=== PATIENT | female | born 1965 | race Caucasian/White ===

== ENCOUNTER 2017-02-11 06:59 | Day surgery (SDC) | payer BC ==
[~2017-02-11] VITALS: Ht 165.1 cm; Wt 63.6 kg
[2017-02-11 08:11] VITALS: BP 105/67; Ht 165.1 cm; Wt 63.6 kg
[2017-02-11 08:24] LABS: HEMATOCRIT 42.2 % (36.0-48.0); HEMOGLOBIN 14.1 g/dL (12-16); MCH 31.9 pg (26.0-34.0); MCHC 33.4 g/dL (31.0-37.0); MCV 95.5 fL (80.0-100.0); MEAN PLATELET VOLUME 10.3 fL (7.4-10.4); RBC 4.42 10x6/uL (4.00-5.40); RDW 13.1 % (11.5-14.5); WBC 6.2 10x3/uL (4.8-10.8)
--- NOTE | 2017-02-11 10:15 | NUR ---
PT REC'D TO ROOM VIA STRETCHER. AWAKE, ALERT, TALKING. VSS.
--- NOTE | 2017-02-11 10:30 | NUR ---
FULL LIQ DIET PROVIDED.
[2017-02-11] MEDS ORDERED: ZESTORETIC 10/11 TAB PO (10:33)
[2017-02-11] MEDS ORDERED: LEXAPRO10 MG (10:34)
[2017-02-11] MEDS ORDERED: PROTONIX20 MG PO (10:34)
--- NOTE | 2017-02-11 11:05 | NUR ---
IV D/C'D CATH INTACT. D/C INSTRUCTIONS EXPLAINED TO PT. VOICED UNDERSTANDING. COPIES OF ALL GIVEN TO PT. D/C'D HOME VIA W/C TO PRIVATE CAR.
--- NOTE | 2017-02-20 13:26 | HP ---
PATIENT: DANIAL EPSTEIN MEDICAL RECORD: [id number] ACCOUNT: [id number] LOCATION:DDARRYL : 63 ADMISSION DATE: 02/11/17 HISTORY AND PHYSICAL EXAMINATION CHIEF COMPLAINT: Difficulty swallowing. HISTORY OF PRESENT ILLNESS: The patient has significant gastroesophageal reflux. She may be contemplating an operation sometime in the future. She also has dysphagia at the level of the cricopharyngeus. We will plan for an upper endoscopy with esophageal dilation. HOME MEDICATIONS: None. ALLERGIES: ASPIRIN. REVIEW OF SYSTEMS: Positive for Crohn disease. PHYSICAL EXAMINATION: GENERAL: The patient does not appear acutely ill. She does not appear chronically ill. VITAL SIGNS: Reviewed. EARS: External ears appear normal. EYES: Extraocular movements are intact. NECK: Trachea is midline. CHEST: No intercostal retractions. PULMONARY: Nonlabored, no stridor. IMPRESSION: 1. Gastroesophageal reflux. 2. Dysphagia. PLAN: EGD with esophageal dilation. TRANSINT:[id number] Voice Confirmation ID: [id number] DOCUMENT ID: [id number] NAWAF SERNA MD at 1326 CC: [id number] DICTATION DATE: 02/11/17 0935 INTERNAL COMBUSTION ENGINE ASSEMBLER: 02/11/17 1010 [facility] 02/11/17 [id number] [place] [address]
--- NOTE | 2017-02-20 13:26 | OP ---
PATIENT NAME: DANIAL EPSTEIN MEDICAL RECORD: [id number] :63 LOCATION:D.OPS ADMISSION DATE: SURGEON: NAWAF SERNA MD DATE OF OPERATION: 02/11/2017 PREOPERATIVE DIAGNOSES: 1. Intractable gastroesophageal reflux disease. 2. Dysphagia at level of the cricopharyngeus. POSTOPERATIVE DIAGNOSES: 1. Intractable gastroesophageal reflux disease. 2. Dysphagia at level of the cricopharyngeus. 3. Paraesophageal hernia. PROCEDURES: Esophagogastroduodenoscopy with antral and distal esophageal biopsies. Esophageal dilation through the catheter balloon to 54-Occitan. SURGEON: Nawaf Serna MD NETWORK FIREWALL ENGINEER: None. BLOOD LOSS: Minimal. ANESTHESIA: IV sedation. COMPLICATIONS: None. The risks, possible complications, and alternatives to the procedure were explained to the patient. A consent form was signed. ENDOSCOPIC COURSE: The patient was conveyed to endoscopy suite electively on 02/11/2017. A bite block was inserted. A gastroscope was inserted into the mouth. It was advanced easily into the hypopharynx. The esophagus was easily intubated as were the stomach and duodenum. Upon withdrawal, retroflexed and angulus views were obtained. Antral biopsies were obtained. I then advanced it through the catheter balloon. I sequentially dilated the entire length of the esophagus to 54-Occitan through the catheter balloon. I removed the balloon. I then re-endoscoped the patient's esophagus and stomach. There had been no evidence of false passage or perforation. Distal esophageal biopsies were obtained to rule out Ocasio's esophagus. The endoscope was then withdrawn under direct vision. I will see the patient in my office in 2 to 3 weeks. At that time, we will discuss the possibility of her undergoing a laparoscopic hiatal hernia repair with a Dulce fundoplication. TRANSINT:[id number] Voice Confirmation ID: [id number] DOCUMENT ID: [id number] OPERATIVE REPORT [id number] TETEDANIAL PANIAGUA NAWAF SHI MD at 1326 CC: TERRI TRACEY MD [id number] DICTATION DATE: 02/11/17 1007 ELECTRIC SYSTEM OPERATOR: 02/11/17 1121 [facility] 02/11/17 [place] [address]
== END 2017-02-11 11:05 | disposition home or self-care (01) ==
LOC: D.OPS 06:59
PROVIDERS: Anesthesiology
DX: R13.10 Dysphagia, unspecified (principal); K44.9 Diaphragmatic hernia without obstruction or gangrene; K21.9 Gastro-esophageal reflux disease without esophagitis; Z87.891 Personal history of nicotine dependence; Z01.812 Encounter for preprocedural laboratory examination

== ENCOUNTER 2017-03-11 08:17 | Outpatient (CLI) | payer BC ==
[2017-02-11 08:11] VITALS: BMI 23.3
[~2017-03-11 08:17] MED LIST: LEXAPRO10 MG; PROTONIX20 MG PO; ZESTORETIC 10/11 TAB PO
== END 2017-03-11 09:20 ==
LOC: D.OPS 08:17
DX: K21.9 Gastro-esophageal reflux disease without esophagitis (principal); K92.0 Hematemesis

== ENCOUNTER 2017-03-17 05:22 | Day surgery (SDC) | payer BC ==
[~2017-03-17] VITALS: Ht 165.1 cm; Wt 63.6 kg
--- NOTE | ~2017-03-17 | DS ---
PATIENT:DANIAL EPSTEIN :63 MEDICAL RECORD: [id number] DISCHARGE SUMMARY ADMISSION DATE: 03/17/17 DISCHARGE DATE: 03/18/17 PRINCIPAL DIAGNOSES: 1. Hiatal hernia. 2. Intractable gastroesophageal reflux. 3. Volume reflux. PROCEDURE: 1. Laparoscopic hiatal hernia repair. 2. Laparoscopic Dulce fundoplication. HOSPITAL COURSE: The patient underwent the above operative procedure. Postoperatively, her pain was controlled with the patient controlled analgesia pump. She is being dismissed home. She is to continue her Carafate as well as a proton pump inhibitor. She has been giving her dietary restrictions. She is going to be on hydrocodone for analgesia as well as Zofran for any nausea. I will see her in the office in 2-3 weeks. TRANSINT:[id number] Voice Confirmation ID: [id number] DOCUMENT ID: [id number] NAWAF SERNA MD at 1131 CC: [id number] DICTATION DATE: 03/18/17 1510 CITRIX ARCHITECT: 03/19/17 1122 [facility] 03/18/17 [address] [place] [address]
--- NOTE | ~2017-03-17 | OP ---
PATIENT NAME: DANIAL EPSTEIN MEDICAL RECORD: [id number] :63 LOCATION:D.OPS ADMISSION DATE: SURGEON: NAWAF SERNA MD DATE OF OPERATION: 03/17/2017 PREOPERATIVE DIAGNOSES: 1. Intractable gastroesophageal reflux. 2. Volume reflux. 3. Paraesophageal hernia. POSTOPERATIVE DIAGNOSES: 1. Intractable gastroesophageal reflux. 2. Volume reflux. 3. No paraesophageal hernia; however, a moderately to large sized hiatal hernia. PROCEDURE: 1. Laparoscopic hiatal hernia repair (posterior crural repair). 2. Laparoscopic Dulce fundoplication. SURGEON: Nawaf Serna MD. PRODUCT SAFETY LEAD: Bran Wen MD (JJ). BLOOD LOSS: Less than 25 cc. DRAINS: None. COMPLICATIONS: None. The risks, possible complications, and alternatives to the procedure were explained to the patient. She elects to proceed. OPERATIVE COURSE: The patient was conveyed to the operating room electively on 03/17/2017. General anesthesia was induced by the anesthesia staff. The abdomen was sterilely prepped and draped. A small skin incision was accomplished in the left upper quadrant. A Veress needle was inserted into the peritoneal cavity. CO2 insufflation was begun. Once a sufficient pneumoperitoneum had been achieved, additional trocars were placed. There were some adhesions in the right side of the abdomen from a prior operation and these adhesions, which consisted only of omental adhesions, were taken down with the Harmonic scalpel. A 5 mm trocar was inserted far laterally in the right upper quadrant. A 12-mm trocar was inserted in the right upper quadrant. An 11-mm trocar was inserted within the umbilicus. Three 5-mm trocars were inserted in the left side of the abdomen. During insertion of the Veress needle and all trocars, there appeared to have been no injury to the bowels, any intraperitoneal or retroperitoneal structures. I began my dissection utilizing the Harmonic scalpel along the greater curve of the stomach, taking down the short gastrics. I identified the left chepe. It was bluntly dissected away from the cardia of the stomach as well as the left side of the esophagus. I took down the phrenicoesophageal ligament with the Harmonic scalpel. Some fatty tissue at the EG junction was excised with the OPERATIVE REPORT [id number] DANIAL EPSTEIN Harmonic scalpel. A mediastinal dissection was carried out utilizing the Harmonic scalpel as well as lot of blunt dissections. Once I was satisfied that we had a return of significant amount of esophagus into the intra-abdominal compartment, I then proceeded with the posterior crural closure. The closure was performed utilizing a 2-0 Stratafix suture. I then created a retroesophageal and retrogastric window. I took down the gastrohepatic ligament with the Harmonic scalpel. I then brought the fundus of the stomach around posterior to the esophagus. The fundoplication was then carried out with a running 2-0 Stratafix suture. This was a 3-suture fundoplication. The first one of the suture was incorporating a portion of the anterior wall of the esophagus. There was no bleeding even at low pressure of 8. The Wilfredo retractor was removed. The fascia at the 12 mm trocar and 11 mm trocar sites were closed with interrupted 0 Vicryls. The skin at the umbilicus was closed with interrupted 4-0 Vicryl Rapide sutures. The other skin incisions were closed with interrupted intracuticular 3-0 Vicryls. The patient was then conveyed to post-anesthesia care unit where she was in stable condition. She will be placed in an observation bed. Our plan is to obtain an upper GI tomorrow to ensure that there is not a leak present. TRANSINT:[id number] Voice Confirmation ID: [id number] DOCUMENT ID: [id number] NAWAF SERNA MD at 1131 CC: MARICEL BANKS [id number] DICTATION DATE: 03/17/17 1053 ADVISOR ADVOCATE ANGEL CO FOUNDER: 03/17/[address] [facility] 03/18/17 [address] [id number] [place] [id number]
--- NOTE | ~2017-03-17 | OP ---
PATIENT NAME: DANIAL EPSTEIN MEDICAL RECORD: [id number] :63 LOCATION:D.MS Cook2240 ADMISSION DATE: SURGEON: KIRA CARTWRIGHT MD DATE OF OPERATION: 03/17/2017 SURGEON: Tony Hart MD HEADLINE WRITER: Kira Cartwright MD OPERATIVE COURSE: I was the veterinary assistant on today's pace. retail administrative assistant was required due to complexity of hiatal hernia. I assisted with trocar placement, placement of the Wilfredo liver retractor, dissection of the hiatal hernia, excision of the hiatal hernia sac as well as closure of the diaphragmatic hiatus as well as closure and creation of the Dulce fundoplication. I was present and assisted during all moreno portions of the operation at the request of Dr. Hart. At the end of the case, all needle and instrument counts were correct. For full details of the operative report, please see Dr. Hart's operative note. TRANSINT:[id number] Voice Confirmation ID: [id number] DOCUMENT ID: [id number] KIRA CARTWRIGHT MD at 1139 CC: [id number] DICTATION DATE: 03/17/17 0956 RF MANAGER: 03/17/17 1110 [id number] [place] [address]
[2017-03-17 06:47] VITALS: BP 113/67; BMI 23.3
[2017-03-17 07:01] LABS: HEMATOCRIT 40.2 % (36.0-48.0); HEMOGLOBIN 13.2 g/dL (12-16); MCH 31.4 pg (26.0-34.0); MCHC 32.8 g/dL (31.0-37.0); MCV 95.5 fL (80.0-100.0); MEAN PLATELET VOLUME 10.1 fL (7.4-10.4); RBC 4.21 10x6/uL (4.00-5.40); RDW 12.3 % (11.5-14.5); WBC 7.5 10x3/uL (4.8-10.8)
[2017-03-17 11:17] VITALS: BP 89/50
[2017-03-17 11:28] VITALS: BP 95/60; Ht 165.1 cm; Wt 63.6 kg
[2017-03-17 20:00] VITALS: BP 90/56
[2017-03-18 09:29] VITALS: BP 82/48
[2017-03-18 14:18] VITALS: BP 99/66
== END 2017-03-18 17:47 | disposition home or self-care (01) ==
LOC: D.OPS 05:22 → D.MS 10:55 → D.OPS 03-18 17:47
PROVIDERS: Anesthesiology
DX: K21.9 Gastro-esophageal reflux disease without esophagitis (principal); K44.9 Diaphragmatic hernia without obstruction or gangrene; Z01.812 Encounter for preprocedural laboratory examination

== ENCOUNTER 2017-03-25 07:03 | Inpatient (IN) | payer BC ==
[2017-03-25] VITALS (7 sets, daily range): BP systolic 92–120; BP diastolic 56–74; BMI 23.2
[~2017-03-25] VITALS: Ht 162.6 cm; Wt 55.2 kg
--- NOTE | ~2017-03-25 | OP ---
PATIENT NAME: DANIAL EPSTEIN MEDICAL RECORD: [id number] :63 LOCATION:MELVIN CookCV08 ADMISSION DATE:03/25/17 SURGEON: KIRA CARTWRIGHT MD DATE OF OPERATION: 03/25/2017 SURGEON: Kira Cartwright MD SHOE REPAIRMAN SURGEON: Tony Hart MD PREOPERATIVE DIAGNOSES: 1. Sepsis. 2. Perforated viscus. 3. Peritonitis. 4. History of Dulce fundoplication. 5. Acute bilateral pulmonary emboli. PROCEDURES PERFORMED: 1. Diagnostic laparoscopy. 2. Abdominal washout. 3. Primary repair of perforated stomach. 4. Abe patch. Other procedures performed by Dr. Hart include EGD and insertion of an IVC filter with fluoroscopy. Please see separate operative note for details of the procedure. ANESTHESIA: General. COMPLICATIONS: None. SPECIMENS: None. Case was grossly contaminated. ESTIMATED BLOOD LOSS: 40 cc. OPERATIVE COURSE: After consent was obtained, the patient was taken to the operating room and placed in the supine position on the operating table. Next, general anesthesia was given via endotracheal intubation after a timeout was performed to confirm the correct patient and procedure. EGD and IVC filter were performed by Dr. Hart. Please see operative note for details of the procedure. After the IVC filter and EGD were performed, the abdomen was prepped and draped in typical sterile fashion. The left upper quadrant incision near Hanley's point was opened with an 11-blade scalpel. Using a 5-mm bladeless optical trocar, the abdomen was entered under direct laparoscopic vision. Adequate pneumoperitoneum was achieved. Next all remaining trocars were placed, a second 5-mm trocar in the left lateral quadrant, 5-mm trocar at the umbilicus, 12-mm trocar in the right lateral quadrant as well as a 5-mm trocar in the right lateral quadrant. Wilfredo liver retractor was placed at the subxiphoid position. The left lobe of the liver was elevated exposing the area of previous operation as well as the diaphragm and diaphragmatic hiatus. The abdomen was copiously irrigated and suctioned, approximately 600 cc of succuss and ascites were suctioned from the abdomen. The Dulce fundoplication appeared intact as OPERATIVE REPORT [id number] DANIAL EPSTEIN the cardia was teased off the diaphragm. A 2 cm perforation was noted at the anterior surface of the stomach along the cardia and greater curvature. The stomach was fully mobilized, the wound edges were freshened and cleaned. This perforation was closed primarily using a 3-0 Stratafix suture. The suture line was then imbricated with a second layer of serosal stitches using Stratafix suture. A second 3-0 Vicryl suture was then placed lateral to the other ischemic side the stomach. At this time, Evicel was placed over the repair. A Abe patch was then performed. The greater omentum was mobilized, it was placed along the anterior surface of the stomach between the liver and stomach. It was sutured in place using 3-0 Vicryl sutures. At this time, the abdomen was copiously irrigated and suctioned. Two MIGUE drains were placed; one MIGUE drain was placed between the liver and the stomach along the lesser curvature of stomach and a second drain was placed in the left upper quadrant posterior to the spleen and then in the left pericolic gutter. Again, the abdomen was copiously irrigated and suctioned. There was no evidence of bleeding, no evidence of bowel injury. At this time, all remaining instruments were removed. The abdomen was desufflated. Trocars were removed. Skin was closed with 3-0 Vicryl, Mastisol and Steri-Strips. At the end of the case, all needle and instrument counts were correct. No complications occurred. The patient was extubated and transferred to the PACU in stable condition. TRANSINT:[id number] Voice Confirmation ID: [id number] DOCUMENT ID: [id number] KIRA CARTWRIGHT MD at 0900 CC: [id number] DICTATION DATE: 03/25/172237 POT BUILDER: 03/26/17 0820 ADM IN [facility] [address] [place] [address]
[2017-03-25 07:34] LABS: BASOPHILS 0.2 % (0-2); EOSINOPHILS 0.2 % (0-7); HEMATOCRIT 40.5 % (36.0-48.0); HEMOGLOBIN 13.7 g/dL (12-16); LYMPHOCYTES 8.4 % (15-50); MCH 31.9 pg (26.0-34.0); MCHC 33.8 g/dL (31.0-37.0); MCV 94.4 fL (80.0-100.0); MEAN PLATELET VOLUME 10.2 fL (7.4-10.4); MONOCYTES 7.8 % (2-11); NEUTROPHILS 82.4 % (40-80); RBC 4.29 10x6/uL (4.00-5.40); RDW 12.7 % (11.5-14.5); WBC 5.8 10x3/uL (4.8-10.8)
[2017-03-25 07:42] LABS: PLATELET COUNT 424 10x3/uL (130-400)
[2017-03-25 07:44] LABS: ALBUMIN 2.7 g/dL (3.4-5.0); ALKALINE PHOSPHATASE 70 U/L (46-116); ALT (SGPT) 19 U/L (10-68); BILIRUBIN - TOTAL 0.67 mg/dL (0.2-1.3); CALC OSMOLALITY 274 mosm/kg (275-300); CALCIUM 8.6 mg/dL (8.5-10.1); CARBON DIOXIDE 21.6 mmol/L (21.0-32.0); CHLORIDE - SERUM 95 mmol/L (98-107); CREATININE - SERUM 0.6 mg/dL (0.6-1.3); GLUCOSE 113 mg/dL (74-106); PROTEIN - SERUM 6.9 g/dL (6.4-8.2); SODIUM 136 mmol/L (136-145); UREA NITROGEN 17 mg/dL (7-18); eGFR NON AFRICAN AMERICAN > 90 mL/min (90-120)
[2017-03-25 07:49] LABS: POTASSIUM - SERUM 2.5 mmol/L (3.5-5.1)
[2017-03-25 07:51] LABS: MAGNESIUM - SERUM 1.8 mg/dL (1.8-2.4)
[2017-03-25 08:36] LABS: AMYLASE - SERUM 16 U/L (25-115); LIPASE 65 U/L (73-393)
[2017-03-25 13:25] LABS: INR 1.29 (0.85-1.17); PROTIME 15.6 SECONDS (11.6-15.0)
[2017-03-25 13:26] LABS: APTT 33.3 SECONDS (22.8-39.4)
[2017-03-26] VITALS (38 sets, daily range): BP systolic 86–115; BP diastolic 53–79; Ht 162.6 cm; Wt 55.2 kg
[2017-03-26 05:58] LABS: BASOPHILS 0.1 % (0-2); EOSINOPHILS 0.1 % (0-7); HEMATOCRIT 32.7 % (36.0-48.0); IMMATURE GRANULOCYTES 0.8 % (0-5); LYMPHOCYTES 6.2 % (15-50); MCHC 33.3 g/dL (31.0-37.0); MCV 92.9 fL (80.0-100.0); MEAN PLATELET VOLUME 10.3 fL (7.4-10.4); MONOCYTES 3.4 % (2-11); NEUTROPHILS 89.4 % (40-80); PLATELET COUNT 364 10x3/uL (130-400); RBC 3.52 10x6/uL (4.00-5.40); RDW 12.9 % (11.5-14.5)
[2017-03-26 06:20] LABS: INR 1.46 (0.85-1.17); PROTIME 17.2 SECONDS (11.6-15.0)
[2017-03-26 06:22] LABS: APTT 33.5 SECONDS (22.8-39.4)
[2017-03-26 06:23] LABS: CALCIUM 7.5 mg/dL (8.5-10.1); CHLORIDE - SERUM 102 mmol/L (98-107); CREATININE - SERUM 0.7 mg/dL (0.6-1.3); GLUCOSE 145 mg/dL (74-106); MAGNESIUM - SERUM 1.6 mg/dL (1.8-2.4); SODIUM 139 mmol/L (136-145); eGFR NON AFRICAN AMERICAN > 90 mL/min (90-120)
[2017-03-26 06:24] LABS: HEMOGLOBIN 10.9 g/dL (12-16); WBC 10.1 10x3/uL (4.8-10.8)
[2017-03-26 06:26] LABS: CALC OSMOLALITY 280 mosm/kg (275-300); CARBON DIOXIDE 28.8 mmol/L (21.0-32.0); UREA NITROGEN 12 mg/dL (7-18)
[2017-03-26 06:27] LABS: POTASSIUM - SERUM 2.7 mmol/L (3.5-5.1)
[2017-03-26 06:38] LABS: HELICOBACTER PYLORI IGG NEGATIVE (NEGATIVE)
[2017-03-26 17:13] LABS: HEPATITIS C ANTIBODY <0.1 (0.0-0.9)
[2017-03-26 19:16] LABS: HEMATOCRIT 30.1 % (36.0-48.0); HEMOGLOBIN 10.1 g/dL (12-16)
[2017-03-27] VITALS (26 sets, daily range): BP systolic 86–194; BP diastolic 47–88
[2017-03-27 06:46] LABS: BASOPHILS 0.1 % (0-2); EOSINOPHILS 0.2 % (0-7); HEMATOCRIT 29.4 % (36.0-48.0); HEMOGLOBIN 9.6 g/dL (12-16); IMMATURE GRANULOCYTES 1.1 % (0-5); LYMPHOCYTES 10.1 % (15-50); MCH 31.2 pg (26.0-34.0); MCHC 32.7 g/dL (31.0-37.0); MCV 95.5 fL (80.0-100.0); MEAN PLATELET VOLUME 9.8 fL (7.4-10.4); MONOCYTES 7.9 % (2-11); NEUTROPHILS 80.6 % (40-80); PLATELET COUNT 291 10x3/uL (130-400); RBC 3.08 10x6/uL (4.00-5.40); RDW 13.5 % (11.5-14.5); WBC 9.7 10x3/uL (4.8-10.8)
[2017-03-27 07:02] LABS: CALCIUM 7.1 mg/dL (8.5-10.1); CARBON DIOXIDE 32.5 mmol/L (21.0-32.0); CHLORIDE - SERUM 107 mmol/L (98-107); GLUCOSE 116 mg/dL (74-106); MAGNESIUM - SERUM 1.7 mg/dL (1.8-2.4); SODIUM 144 mmol/L (136-145)
[2017-03-27 07:11] LABS: CALC OSMOLALITY 285 mosm/kg (275-300); CREATININE - SERUM 0.5 mg/dL (0.6-1.3); POTASSIUM - SERUM 3.2 mmol/L (3.5-5.1); UREA NITROGEN 7 mg/dL (7-18); eGFR NON AFRICAN AMERICAN > 90 mL/min (90-120)
[2017-03-27 11:21] LABS: ACLA - IGG AB <9 GPL U/mL (0-14); ACLA - IGM AB 12 MPL U/mL (0-12)
[2017-03-27 13:41] LABS: HEMATOCRIT 30.7 % (36.0-48.0)
[2017-03-27 20:30] LABS: HEMATOCRIT 30.5 % (36.0-48.0); HEMOGLOBIN 9.9 g/dL (12-16)
[2017-03-28] VITALS (24 sets, daily range): BP systolic 85–142; BP diastolic 61–88
[2017-03-28 03:28] LABS: BASOPHILS 0.1 % (0-2); EOSINOPHILS 0.5 % (0-7); HEMATOCRIT 30.7 % (36.0-48.0); HEMOGLOBIN 9.9 g/dL (12-16); IMMATURE GRANULOCYTES 1.8 % (0-5); LYMPHOCYTES 11.7 % (15-50); MCH 31.1 pg (26.0-34.0); MCHC 32.2 g/dL (31.0-37.0); MCV 96.5 fL (80.0-100.0); MEAN PLATELET VOLUME 9.6 fL (7.4-10.4); MONOCYTES 10.6 % (2-11); NEUTROPHILS 75.3 % (40-80); PLATELET COUNT 285 10x3/uL (130-400); RBC 3.18 10x6/uL (4.00-5.40); RDW 13.4 % (11.5-14.5); WBC 9.4 10x3/uL (4.8-10.8)
[2017-03-28 03:44] LABS: ALBUMIN 1.6 g/dL (3.4-5.0); ALKALINE PHOSPHATASE 56 U/L (46-116); ALT (SGPT) 17 U/L (10-68); CALC OSMOLALITY 279 mosm/kg (275-300); CALCIUM 7.3 mg/dL (8.5-10.1); CARBON DIOXIDE 34.3 mmol/L (21.0-32.0); CHLORIDE - SERUM 105 mmol/L (98-107); CREATININE - SERUM 0.4 mg/dL (0.6-1.3); GLUCOSE 114 mg/dL (74-106); MAGNESIUM - SERUM 2.3 mg/dL (1.8-2.4); PHOSPHOROUS 2.6 mg/dL (2.5-4.9); POTASSIUM - SERUM 3.4 mmol/L (3.5-5.1); SODIUM 141 mmol/L (136-145); UREA NITROGEN 8 mg/dL (7-18); eGFR NON AFRICAN AMERICAN > 90 mL/min (90-120)
[2017-03-28 09:19] LABS: PROTEIN S - FREE 43 % (57-157); PROTEIN S - TOTAL 66 % (60-150)
[2017-03-28 13:17] LABS: PROTEIN S - FREE 44 % (57-157); PROTEIN S - FUNCTIONAL 24 % (63-140); PROTEIN S - TOTAL 66 % (60-150)
[2017-03-28 15:24] LABS: LUPUS - INTERPRETATION Comment: (()); LUPUS - THROMBIN TIME 16.2 sec (0.0-23.0); LUPUS - dRVVT 46.4 sec (0.0-47.0); PTT-LA 43.8 sec (0.0-51.9)
[2017-03-29] VITALS (22 sets, daily range): BP systolic 112–150; BP diastolic 72–90
[2017-03-29 05:43] LABS: BASOPHILS 0.3 % (0-2); EOSINOPHILS 0.5 % (0-7); HEMATOCRIT 30.4 % (36.0-48.0); IMMATURE GRANULOCYTES 1.6 % (0-5); LYMPHOCYTES 13.9 % (15-50); MCH 31.4 pg (26.0-34.0); MCHC 32.9 g/dL (31.0-37.0); MCV 95.6 fL (80.0-100.0); MEAN PLATELET VOLUME 9.8 fL (7.4-10.4); MONOCYTES 13.5 % (2-11); NEUTROPHILS 70.2 % (40-80); PLATELET COUNT 280 10x3/uL (130-400); RBC 3.18 10x6/uL (4.00-5.40); RDW 13.3 % (11.5-14.5); WBC 9.3 10x3/uL (4.8-10.8)
[2017-03-29 05:52] LABS: CALC OSMOLALITY 270 mosm/kg (275-300); CALCIUM 7.8 mg/dL (8.5-10.1); CARBON DIOXIDE 33.8 mmol/L (21.0-32.0); CHLORIDE - SERUM 98 mmol/L (98-107); CREATININE - SERUM 0.4 mg/dL (0.6-1.3); GLUCOSE 100 mg/dL (74-106); MAGNESIUM - SERUM 2.1 mg/dL (1.8-2.4); POTASSIUM - SERUM 3.5 mmol/L (3.5-5.1); SODIUM 136 mmol/L (136-145); UREA NITROGEN 10 mg/dL (7-18); eGFR NON AFRICAN AMERICAN > 90 mL/min (90-120)
[2017-03-29 19:10] LABS: PROTEIN C - ANTIGEN 68 % (60-150); PROTEIN C - FUNCTIONAL 80 % (73-180)
[2017-03-30] VITALS (14 sets, daily range): BP systolic 109–157; BP diastolic 68–91
[2017-03-30 03:06] LABS: GASTRIN 25 pg/mL (0-115)
[2017-03-30 06:10] LABS: BASOPHILS 0.2 % (0-2); EOSINOPHILS 0.6 % (0-7); HEMATOCRIT 29.4 % (36.0-48.0); HEMOGLOBIN 9.7 g/dL (12-16); IMMATURE GRANULOCYTES 2.6 % (0-5); LYMPHOCYTES 15.3 % (15-50); MCH 30.7 pg (26.0-34.0); MEAN PLATELET VOLUME 9.7 fL (7.4-10.4); MONOCYTES 15.3 % (2-11); PLATELET COUNT 235 10x3/uL (130-400); RBC 3.16 10x6/uL (4.00-5.40); RDW 12.8 % (11.5-14.5); WBC 8.8 10x3/uL (4.8-10.8)
[2017-03-30 06:31] LABS: CALC OSMOLALITY 272 mosm/kg (275-300); CALCIUM 8.2 mg/dL (8.5-10.1); CARBON DIOXIDE 30.8 mmol/L (21.0-32.0); CHLORIDE - SERUM 99 mmol/L (98-107); CREATININE - SERUM 0.4 mg/dL (0.6-1.3); GLUCOSE 108 mg/dL (74-106); POTASSIUM - SERUM 3.5 mmol/L (3.5-5.1); SODIUM 137 mmol/L (136-145); UREA NITROGEN 8 mg/dL (7-18); eGFR NON AFRICAN AMERICAN > 90 mL/min (90-120)
[2017-03-31] VITALS (7 sets, daily range): BP systolic 138–159; BP diastolic 87–95
[2017-03-31 07:02] LABS: BASOPHILS 0.3 % (0-2); EOSINOPHILS 0.8 % (0-7); HEMATOCRIT 33.2 % (36.0-48.0); IMMATURE GRANULOCYTES 3.2 % (0-5); LYMPHOCYTES 19.6 % (15-50); MCHC 33.1 g/dL (31.0-37.0); MCV 93.5 fL (80.0-100.0); MONOCYTES 18.7 % (2-11); NEUTROPHILS 57.4 % (40-80); PLATELET COUNT 270 10x3/uL (130-400); RBC 3.55 10x6/uL (4.00-5.40); RDW 12.9 % (11.5-14.5); WBC 8.8 10x3/uL (4.8-10.8)
[2017-03-31 07:19] LABS: CALC OSMOLALITY 271 mosm/kg (275-300); CALCIUM 8.5 mg/dL (8.5-10.1); CARBON DIOXIDE 28.4 mmol/L (21.0-32.0); CHLORIDE - SERUM 99 mmol/L (98-107); CREATININE - SERUM 0.4 mg/dL (0.6-1.3); GLUCOSE 102 mg/dL (74-106); POTASSIUM - SERUM 3.7 mmol/L (3.5-5.1); SODIUM 137 mmol/L (136-145); UREA NITROGEN 8 mg/dL (7-18); eGFR NON AFRICAN AMERICAN > 90 mL/min (90-120)
[2017-03-31 18:10] LABS: FACTOR II DNA ANALYSIS Negative (())
[2017-04-01] VITALS (12 sets, daily range): BP systolic 113–147; BP diastolic 61–94
[2017-04-01 06:45] LABS: BASOPHILS 0.4 % (0-2); EOSINOPHILS 0.8 % (0-7); HEMATOCRIT 33.3 % (36.0-48.0); IMMATURE GRANULOCYTES 2.1 % (0-5); LYMPHOCYTES 16.1 % (15-50); MCH 30.9 pg (26.0-34.0); MCV 93.5 fL (80.0-100.0); MEAN PLATELET VOLUME 10.4 fL (7.4-10.4); MONOCYTES 15.4 % (2-11); NEUTROPHILS 65.2 % (40-80); PLATELET COUNT 331 10x3/uL (130-400); RBC 3.56 10x6/uL (4.00-5.40)
[2017-04-01 06:56] LABS: INR 1.4 (0.85-1.17); PROTIME 16.7 SECONDS (11.6-15.0)
[2017-04-01 06:57] LABS: APTT 43.9 SECONDS (22.8-39.4)
[2017-04-01 06:59] LABS: CALC OSMOLALITY 273 mosm/kg (275-300); CALCIUM 8.4 mg/dL (8.5-10.1); CARBON DIOXIDE 29.2 mmol/L (21.0-32.0); CHLORIDE - SERUM 99 mmol/L (98-107); CREATININE - SERUM 0.5 mg/dL (0.6-1.3); GLUCOSE 87 mg/dL (74-106); MAGNESIUM - SERUM 1.9 mg/dL (1.8-2.4); POTASSIUM - SERUM 3.7 mmol/L (3.5-5.1); SODIUM 138 mmol/L (136-145); UREA NITROGEN 10 mg/dL (7-18); eGFR NON AFRICAN AMERICAN > 90 mL/min (90-120)
[2017-04-01 11:38] LABS: PROTEIN - BODY FLUID 3.6 G/DL
[2017-04-02 01:46] VITALS: BP 126/82
[2017-04-02 05:15] VITALS: BP 139/79
[2017-04-02 06:33] LABS: BASOPHILS 0.2 % (0-2); EOSINOPHILS 0.6 % (0-7); HEMOGLOBIN 10.2 g/dL (12-16); IMMATURE GRANULOCYTES 1.7 % (0-5); LYMPHOCYTES 17.4 % (15-50); MCH 30.8 pg (26.0-34.0); MCHC 32.9 g/dL (31.0-37.0); MCV 93.7 fL (80.0-100.0); MEAN PLATELET VOLUME 10.5 fL (7.4-10.4); MONOCYTES 13.7 % (2-11); NEUTROPHILS 66.4 % (40-80); PLATELET COUNT 369 10x3/uL (130-400); RBC 3.31 10x6/uL (4.00-5.40); RDW 13.1 % (11.5-14.5); WBC 9.5 10x3/uL (4.8-10.8)
[2017-04-02 07:10] LABS: CALC OSMOLALITY 268 mosm/kg (275-300); CALCIUM 7.6 mg/dL (8.5-10.1); CARBON DIOXIDE 27.6 mmol/L (21.0-32.0); CHLORIDE - SERUM 97 mmol/L (98-107); CREATININE - SERUM 0.5 mg/dL (0.6-1.3); GLUCOSE 96 mg/dL (74-106); MAGNESIUM - SERUM 1.7 mg/dL (1.8-2.4); SODIUM 135 mmol/L (136-145); UREA NITROGEN 9 mg/dL (7-18); eGFR NON AFRICAN AMERICAN > 90 mL/min (90-120)
[2017-04-02 07:12] LABS: POTASSIUM - SERUM 3.1 mmol/L (3.5-5.1)
[2017-04-02 12:09] VITALS: BP 135/81
[2017-04-02 13:18] LABS: FUNGUS STAIN Final report (())
[2017-04-02] MEDS ORDERED: ELIQUIS5 MG PO (14:09)
[2017-04-02] MEDS ORDERED: PROTONIX20 MG PO (14:10)
[2017-04-02] MEDS ORDERED: HYDROCODON-ACE1 EAC7 PO (14:11)
[2017-04-02] MEDS ORDERED: AUGMENTIN 875-11 TAB PO (14:18)
[2017-04-02 17:37] LABS: POTASSIUM - SERUM 3.5 mmol/L (3.5-5.1)
[2017-04-02 17:39] LABS: MAGNESIUM - SERUM 2.3 mg/dL (1.8-2.4)
[2017-04-02 19:12] LABS: ACID FAST SMEAR Negative (()); AFB SPECIMEN PROCESSING Concentration (())
[2017-04-05 04:16] LABS: IMMUNOGLOBULIN E 20 IU/mL (0-100)
[2017-04-08 11:17] LABS: FUNGUS MYCOLOGY CULTURE Preliminary report (())
== END 2017-04-02 18:50 | disposition home or self-care (01) | DRG 853 ==
LOC: D.ER 07:03 → D.SDCHOLD 11:31 → D.CVICU 11:31 → D.ICU 11:43 → D.CVICU 12:38 → D.WS 03-31 22:13
PROVIDERS: Emergency Medicine; Family Medicine; Internal Medicine Hematology & Oncology; Internal Medicine Pulmonary Disease; Radiology Diagnostic Radiology; Surgery
PROC: 0DQ60ZZ Repair Stomach, Open Approach (ICD-10-PCS; 2017-03-25)
PROC: 0DU907Z Supplement Duodenum with Autologous Tissue Substitute, Open Approach (ICD-10-PCS; 2017-03-25)
PROC: 0D9670Z Drainage of Stomach with Drainage Device, Via Natural or Artificial Opening (ICD-10-PCS; 2017-03-25)
PROC: 0DJ08ZZ Inspection of Upper Intestinal Tract, Via Natural or Artificial Opening Endoscopic (ICD-10-PCS; 2017-03-25)
PROC: 06H03DZ Insertion of Intraluminal Device into Inferior Vena Cava, Percutaneous Approach (ICD-10-PCS; 2017-03-25 14:45)
PROC: 0W9G0ZZ Drainage of Peritoneal Cavity, Open Approach (ICD-10-PCS; 2017-03-25 14:45)
PROC: 02HV33Z Insertion of Infusion Device into Superior Vena Cava, Percutaneous Approach (ICD-10-PCS; principal; 2017-03-26)
PROC: B548ZZA Ultrasonography of Superior Vena Cava, Guidance (ICD-10-PCS; 2017-03-26)
PROC: 0W9B3ZZ Drainage of Left Pleural Cavity, Percutaneous Approach (ICD-10-PCS; 2017-04-01)
DX: A41.9 Sepsis, unspecified organism (principal); K65.9 Peritonitis, unspecified; I26.99 Other pulmonary embolism without acute cor pulmonale; J18.9 Pneumonia, unspecified organism; K25.1 Acute gastric ulcer with perforation; J98.11 Atelectasis; D62 Acute posthemorrhagic anemia; J44.0 Chronic obstructive pulmonary disease with (acute) lower respiratory infection; I82.401 Acute embolism and thrombosis of unspecified deep veins of right lower extremity; K50.90 Crohn's disease, unspecified, without complications; I31.9 Disease of pericardium, unspecified; I10 Essential (primary) hypertension; K21.9 Gastro-esophageal reflux disease without esophagitis; E87.6 Hypokalemia; E83.42 Hypomagnesemia; R00.0 Tachycardia, unspecified; Z87.891 Personal history of nicotine dependence

== ENCOUNTER 2017-04-15 08:11 | Emergency (ER) | payer BC ==
[2017-03-26 18:37] VITALS: BMI 21.7
--- NOTE | ~2017-04-15 | CN ---
PATIENT NAME:DANIAL EPSTEIN MEDICAL RECORD: [id number] : 63 LOCATION:D.ER ADMIT DATE: ACCOUNT: [id number] CONSULTING PHYSICIAN: NAWAF SERNA MD REFERRING PHYSICIAN: DARRON DOWNEY MD DATE OF CONSULTATION: 04/15/2017 HISTORY OF PRESENT ILLNESS: The patient presented to the Emergency Room with abdominal pain. I was tied in the operating room, I asked my partner, Dr. MIGDALIA Wen to go and evaluated the patient and he was kind enough to do so. I then was able to go and evaluate the patient after I completed my operative procedure. The patient has had the gradual onset of diffuse abdominal pain. I have reviewed her CT of the chest images as well as the CT of the abdomen. Other than for a distended stomach with air, I really do not see any acute process. Fortunately, no evidence of a gastric perforation which she has been hospitalized for in the past. Her incisions look good. The patient has had some nausea. No vomiting. No retching. She has been passing flatus. I think she is swallowing too much air and we discussed an exercise that she can use to prevent that. She states that she is afraid to eat. There may be an element of irritable bowel syndrome. I am going to dismiss the patient home on Levsin as well as Valium. I have discussed this with Dr. Downey, who was the Emergency Room physician treating the patient. I would like for the patient to call me or my nurse, Nguyen in the office tomorrow to let me know how she is doing. TRANSINT:[id number] Voice Confirmation ID: [id number] DOCUMENT ID: [id number] NAWAF SERNA MD at 1034 CC: [id number] DICTATION DATE: 04/15/17 1651 THIOKOL OPERATOR: 04/15/17 1741 DEP ER 04/15/17 [id number] [place] [id number]
[~2017-04-15 08:11] MED LIST changes: +AUGMENTIN 875-11 TAB PO; +ELIQUIS5 MG PO; +HYDROCODON-ACE1 EAC7 PO
[2017-04-15 09:01] LABS: HEMATOCRIT 37.9 % (36.0-48.0); HEMOGLOBIN 12.4 g/dL (12-16); LYMPHOCYTES 19.3 % (15-50); MCH 30.3 pg (26.0-34.0); MCHC 32.7 g/dL (31.0-37.0); MCV 92.7 fL (80.0-100.0); MEAN PLATELET VOLUME 9.9 fL (7.4-10.4); NEUTROPHILS 69.5 % (40-80); RBC 4.09 10x6/uL (4.00-5.40); RDW 13.6 % (11.5-14.5); WBC 8.5 10x3/uL (4.8-10.8)
[2017-04-15 09:02] LABS: PLATELET COUNT 489 10x3/uL (130-400)
[2017-04-15 09:16] LABS: ALBUMIN 3.2 g/dL (3.4-5.0); ALKALINE PHOSPHATASE 79 U/L (46-116); ALT (SGPT) 15 U/L (10-68); BILIRUBIN - TOTAL 0.26 mg/dL (0.2-1.3); CALC OSMOLALITY 265 mosm/kg (275-300); CALCIUM 9.5 mg/dL (8.5-10.1); CARBON DIOXIDE 29.7 mmol/L (21.0-32.0); CHLORIDE - SERUM 92 mmol/L (98-107); CREATININE - SERUM 0.8 mg/dL (0.6-1.3); GLUCOSE 117 mg/dL (74-106); POTASSIUM - SERUM 3.1 mmol/L (3.5-5.1); PROTEIN - SERUM 8.3 g/dL (6.4-8.2); SODIUM 132 mmol/L (136-145); UREA NITROGEN 12 mg/dL (7-18); eGFR NON AFRICAN AMERICAN 80 mL/min (90-120)
[2017-04-15 09:20] LABS: AMYLASE - SERUM 53 U/L (25-115); C-REACTIVE PROTEIN 5.7 mg/dL (0.0-0.9); LIPASE 321 U/L (73-393); TROPONIN-I < 0.017 ng/mL (0.000-0.060)
== END 2017-04-15 11:55 | disposition home or self-care (01) ==
LOC: D.ER 08:11
PROVIDERS: Family Medicine
DX: R10.13 Epigastric pain (principal); K21.9 Gastro-esophageal reflux disease without esophagitis

== ENCOUNTER 2020-06-07 05:55 | Day surgery (SDC) | payer BC ==
[2020-06-06 16:16] LABS: BASOPHILS 0.8 % (0-2); EOSINOPHILS 0.6 % (0-7); HEMOGLOBIN 14.5 g/dL (12-16); IMMATURE GRANULOCYTES 0.1 % (0-5); LYMPHOCYTE ABS# 2.55 10x3/uL (1.18-3.74); MCH 31.5 pg (26.0-34.0); MCV 95.4 fL (80.0-100.0); MEAN PLATELET VOLUME 10.6 fL (7.4-10.4); MONOCYTES 6.4 % (2-11); NEUTROPHIL ABS# 6.83 10x3/uL (1.56-6.13); NEUTROPHILS 67.1 % (40-80); RBC 4.61 10x6/uL (4.00-5.40); RDW 12.4 % (11.5-14.5); WBC 10.2 10x3/uL (4.8-10.8)
[2020-06-06 16:26] LABS: PLATELET COUNT 279 10x3/uL (130-400)
[2020-06-06 16:43] LABS: CALC OSMOLALITY 281 mosm/kg (275-300); CALCIUM 9.5 mg/dL (8.5-10.1); CARBON DIOXIDE 32.1 mmol/L (21.0-32.0); CHLORIDE - SERUM 101 mmol/L (98-107); CREATININE - SERUM 0.7 mg/dL (0.6-1.3); GLUCOSE 91 mg/dL (74-106); POTASSIUM - SERUM 3.4 mmol/L (3.5-5.1); SODIUM 141 mmol/L (136-145); UREA NITROGEN 14 mg/dL (7-18); eGFR NON AFRICAN AMERICAN > 90 mL/min (90-120)
[~2020-06-07] VITALS: Ht 165.1 cm; Wt 61.2 kg
--- NOTE | ~2020-06-07 | OP ---
PATIENT NAME: DANIAL CUELLO MEDICAL RECORD: [id number] :63 LOCATION:OMAR ADMISSION DATE: SURGEON: ANIBAL BARROSO DO DATE OF OPERATION: 06/07/2020 PROCEDURE PERFORMED: Right shoulder arthroscopy with rotator cuff repair, distal clavicle excision, subacromial decompression with acromioplasty, labral debridement and biceps tenodesis. PREOPERATIVE DIAGNOSES: Right shoulder partial thickness rotator cuff tear, superior labrum anterior and posterior tear, subacromial impingement and acromioclavicular joint arthritis. POSTOPERATIVE DIAGNOSES: Right shoulder partial thickness rotator cuff tear, superior labrum anterior and posterior tear, subacromial impingement and acromioclavicular joint arthritis. INDICATIONS: Ms. Cuello is a 54-year-old female who has had right shoulder pain for quite some time. She has tried all manner of nonoperative treatment to no avail. She had an MRI showing the above findings and wanted something done surgically. I informed her of the risks and benefits of this procedure including infection, bleeding, damage to nerves and vessels, need for further surgery, continued pain, arthrofibrosis, frozen shoulder syndrome, nerve damage, bleeding, failure of implants and retear and she was aware of all that and signed the consent. SURGEON: Aniabl Barroso DO DESCRIPTION OF PROCEDURE: The patient received a block by anesthesia in the preoperative area, given 900 mg of clindamycin, taken to the operative suite, laid in the left lateral decubitus position with the right shoulder up. She was sedated and LMA was placed. The right shoulder was then prepped and draped in sterile fashion. A timeout was performed and everyone was in agreeance with the correct side, site, patient and procedure. I then began by using an 18-gauge spinal needle, inflating the shoulder joint with 60 mL of normal saline. I then established a posterior portal with a #11 blade scalpel, trocar entered into the joint. I then removed the trocar and entered the camera in and established an anterior portal with 18-gauge spinal needle and 11-blade scalpel. Trocar brought in. I then saw the partial thickness tear of the supraspinatus and the anterior fibers extending posteriorly. Also saw a SLAP tear and a partial tear of the long head of the biceps tendon. Subscapularis was in good repair. There were no loose bodies in the inferior joint and the joint space. There was good cartilage on the humerus and the glenoid. We then brought in a burner and did a biceps tenotomy and labral debridement, debriding the frayed labrum with a SLAP tear and then went to the subacromial space, established a lateral port with 18-gauge spinal needle and 11-blade scalpel, brought in a shaver and removed the bursa, the subacromial decompression with acromioplasty and then through the anterior portal, distal clavicle excision, opened up the AC joint approximately 7 mm. I then went back into the joint and marked a partial thickness articular-sided tear with an 18-gauge spinal needle through the lateral portal. We then removed the camera and the fluid as best I could and opened up the lateral portal with a 15-blade scalpel extending it, made careful dissection down to the rotator cuff tendon tear, it was marked put a Regeneten implant on and stapled it into place. I then went to the anterior humerus, made an incision and carefully dissected out the long head of the biceps tendon and put OPERATIVE REPORT [id number] DANIAL CUELLO YUDELKA a unicortical 2.9 JuggerLoc loop into the humerus and pulled the tension on the biceps tendon and cinched it down and holding it nicely in place. I then cut the loop with a free needle, went back through the tendon twice and tied it down, cut the excess tendon and suture. We then irrigated the site. Kaley Dillon, certified public accountant then closed the sites that were opened with 2-0 Vicryl in inverted interrupted fashion, ran 4-0 Monocryl on the skin and 4-0 Monocryl and the portal sites and placed Dermabond glue and Telfa and Tegaderm after the glue had dried. She was awakened, put in a sling, taken to recovery in stable condition. ESTIMATED BLOOD LOSS: Minimal. COMPLICATIONS: None. TRANSINT:[id number] Voice Confirmation ID: [id number] DOCUMENT ID: [id number] ANIBAL BARROSO DO CC: [id number] DICTATION DATE: 06/07/20 0956 OVERNIGHT HOUSEPERSON: 06/07/20 1342 [facility] 06/07/20 [id number] [place] [address]
[~2020-06-07 05:55] MED LIST changes: -LEXAPRO10 MG; +LEXAPRO10 MG PO; +TEMAZEPAM30 MG PO
[2020-06-07 06:37] VITALS: BP 143/85; Ht 165.1 cm; Wt 61.2 kg
[2020-06-07] MEDS ORDERED: PERCOCET 10-321 EAC1 PO (08:10)
[2020-06-07] MEDS ORDERED: VISTARIL50 MG PO (08:11)
[2020-06-07] MEDS ORDERED: TORADOL10 MG PO (08:12)
--- NOTE | 2020-06-07 10:20 | NUR ---
IV DC'D WITH CATH TIP INTACT. DC INSTRUCTIONS GIVEN TO PT BY CLIFTON FAIRCHILD. COPY PROVIDED TO PT. BOTH PT AND SPOUSE VOICED UNDERSTANDING OF INSTRUCTIONS GIVEN.
--- NOTE | 2020-06-07 10:50 | NUR ---
DISCHARGED VIA W/C, ACCOMPANIED BY SN JANINE, TO [facility] WITH SPOUSE DRIVING. ALL BELONGINGS WITH PT/SPOUSE.
== END 2020-06-07 10:50 | disposition home or self-care (01) ==
LOC: D.OPS 05:55
PROVIDERS: Anesthesiology; ATTEND Orthopaedic Surgery
DX: M13.811 Other specified arthritis, right shoulder (principal); M75.41 Impingement syndrome of right shoulder; M75.101 Unspecified rotator cuff tear or rupture of right shoulder, not specified as traumatic; M25.511 Pain in right shoulder; M75.21 Bicipital tendinitis, right shoulder